=== PATIENT | male | born 1950 | race Caucasian/White ===

== ENCOUNTER 2021-12-25 13:54 | Inpatient (IN) | payer OTHER ==
[~2021-12-25] VITALS: Ht 172.7 cm; Wt 94.6 kg
[2021-12-25 13:55] VITALS: BP_SYST 101
[2021-12-25] MEDS ORDERED: methylPREDNISolone SOD SUCC/PF 62.5 MG/ML VIAL IVP ONE (14:30)
[2021-12-25] MEDS ORDERED: IPRATROPIUM BROM 0.5 MG/2.5 ML VIAL.NEB (ATROVENT) INH ONE (14:30)
[2021-12-25] MEDS ORDERED: ALBUTEROL SULFATE 0.083% 2.5 MG/3 ML VIAL.NEB INH ONE (14:30)
[2021-12-25 14:57] LABS: ANION GAP 11 (5-15); CALCIUM 9.5 mg/dL (8.4-11.0); CHLORIDE 100 mmol/L (98-107); CREATININE 2.06 mg/dL (0.55-1.30); GLUCOSE 89 mg/dL (70-99); POTASSIUM 4.4 mmol/L (3.5-5.1); UREA NITROGEN, BLOOD 40 mg/dL (8-21)
[2021-12-25 15:01] LABS: GFR AFRICAN AMERICAN 41 mL/min (>90)
[2021-12-25 15:05] LABS: ALANINE AMINOTRANSFERASE 48 U/L (12-78); ALBUMIN 3.6 g/dL (3.4-4.8); ASPARTATE AMINOTRANSFERASE 48 U/L (10-37); TOTAL BILIRUBIN 1.4 mg/dL (0.0-1.0)
[2021-12-25] MEDS ORDERED: KETOROLAC TROMETHAMINE 15 MG VIAL IVP ONE (16:45)
[2021-12-25] MEDS ORDERED: MULT-976 PO (17:18)
[2021-12-25] MEDS ORDERED: MELA10TA2 PO (17:18)
[2021-12-25] MEDS ORDERED: FOLI-43 PO (17:18)
[2021-12-25] MEDS ORDERED: ALBU90AE2 INH (17:18)
[2021-12-25] MEDS ORDERED: MIRT-114 PO (17:18)
[2021-12-25] MEDS ORDERED: ALBU2.5V7 INH (17:18)
[2021-12-25] MEDS ORDERED: LORA-259 PO (17:18)
[2021-12-25] MEDS ORDERED: LEVE500T9 PO (17:18)
[2021-12-25] MEDS ORDERED: HYDR-3919 PO (17:18)
[2021-12-25] MEDS ORDERED: PRED20TA PO (17:18)
[2021-12-25] MEDS ORDERED: FLUT1BLS19 INH (17:18)
[2021-12-25] MEDS ORDERED: ROFL500T PO (17:18)
[2021-12-25] MEDS ORDERED: APIX5TAB PO (17:18)
[2021-12-25] MEDS ORDERED: OMEP40CA20 PO (17:18)
[2021-12-25] MEDS ORDERED: DILT240C94 PO (17:18)
[2021-12-25] MEDS ORDERED: PARO40TA PO (17:18)
[2021-12-25] MEDS ORDERED: LIP40 PO (17:18)
[2021-12-25 19:03] LABS: MEAN CORPUSCULAR HEMOGLOBIN 28 pg (27-31); MEAN CORPUSCULAR VOLUME 88 fL (79.0-98.0); RED BLOOD CELL COUNT(AUTO) 4.57 MIL/uL (4.2-6.2)
[2021-12-25 19:04] LABS: MEAN CORPUSCULAR HGB CONC 32 % (32-36); PLATELET COUNT (AUTO) 321 K/uL (130-430); RED CELL DISTRIBUTION WIDTH 17.9 % (9.0-15.0)
[2021-12-25 19:05] LABS: BAND % (MANUAL) 4 % (0-6); LYMPHOCYTES % (MANUAL) 4 % (20-46)
[2021-12-25 19:06] LABS: BASOPHILS % (MANUAL) 0 % (0-2); EOSINOPHILS % (MANUAL) 0 % (0-7); MONOCYTES % (MANUAL) 6 % (0-11)
[2021-12-25 19:19] LABS: WHITE BLOOD COUNT (AUTO) 33.1 K/uL (4.8-10.8)
[2021-12-25] MEDS ORDERED: IPRATROPIUM/ALBUTEROL SULFATE 3 ML AMPUL.NEB (DUONEB) INH ONE (19:45)
[2021-12-25] MEDS ORDERED: NACL 0.9% 500 ML IV SCH (20:30)
[2021-12-25] MEDS ORDERED: cefTRIAXone 1 GM VIAL ONE (20:54)
[2021-12-25] MEDS ORDERED: cefTRIAXone 1 GM in D5W 50 ML IV SCH (21:00)
[2021-12-25] MEDS ORDERED: VANCOMYCIN HCL 1 GM/NS PREMIX 250 ML IV SCH (22:00)
[2021-12-25] MEDS ORDERED: NOREPINEPHRINE 4 MG/4 ML VIAL IV ONE (22:01)
[2021-12-25] MEDS: NOREPINEPHRINE BITARTRATE 4 MG in D5W 246 ML IV PRN (22:19)
[2021-12-25] MEDS: methylPREDNISolone SOD SUCC/PF 62.5 MG/ML VIAL IVP SCH (22:29)
[2021-12-25] MEDS ORDERED: PIPERACILLIN/TAZOBACTAM 4.5 GM/VIAL (ZOSYN) IV ONE (22:41)
[2021-12-25] MEDS: PIPERACILLIN/TAZO 4.5GM/DEX-IS 100 ML IV SCH (23:22)
[2021-12-26] VITALS (17 sets, daily range): BP systolic 106–162
[2021-12-26] MEDS ORDERED: LORazepam 2 MG/ML VIAL IVP ONE
[2021-12-26] MEDS: IPRATROPIUM/ALBUTEROL SULFATE 3 ML AMPUL.NEB (DUONEB) INH SCH ×5 (00:11→19:50)
[2021-12-26] MEDS ORDERED: VANCOMYCIN HCL 1000 MG/VIAL IV ONE (01:02)
[2021-12-26] MEDS ORDERED: PIPERACILLIN/TAZOBACTAM 4.5 GM/VIAL (ZOSYN) IV ONE (02:55)
[2021-12-26] MEDS ORDERED: LORazepam 1 MG TABLET PO PRN (03:15)
[2021-12-26] MEDS ORDERED: SODIUM BICARBONATE 8.4% VIAL 50 MEQ/50 ML VIAL INJ ONE (03:15)
[2021-12-26] MEDS ORDERED: SODIUM BICARBONATE 8.4% JECT 50 MEQ/50 ML SYRINGE ONE (03:31)
[2021-12-26] MEDS: PIPERACILLIN/TAZO 4.5GM/DEX-IS 100 ML IV SCH (06:08)
[2021-12-26] MEDS: methylPREDNISolone SOD SUCC/PF 62.5 MG/ML VIAL IVP SCH ×2 (06:09→14:45)
[2021-12-26] MEDS: LORazepam 1 MG TABLET PO PRN ×2 (06:31→22:57)
[2021-12-26] MEDS ORDERED: NOREPINEPHRINE 4 MG/4 ML VIAL IV ONE (06:46)
[2021-12-26] MEDS: NOREPINEPHRINE BITARTRATE 4 MG in D5W 246 ML IV PRN (06:56)
[2021-12-26 07:21] LABS: BILIRUBIN,URINE NEGATIVE (NEGATIVE); BLOOD, URINE 3+ (NEGATIVE); COLOR,URINE YELLOW (YELLOW); GLUCOSE,URINE NEGATIVE (NEGATIVE); KETONES,URINE NEGATIVE (NEGATIVE); LEUKOCYTE ESTERASE ,URINE NEGATIVE (NEGATIVE); NITRITE, URINE NEGATIVE (NEGATIVE); PROTEIN URINE 1+ (NEGATIVE); UROBILINOGEN,URINE 0.2 (0.2-1.0)
[2021-12-26 07:24] LABS: CLARITY/URINE CLOUDY (CLEAR)
[2021-12-26 07:29] LABS: CREATININE 2.41 mg/dL (0.55-1.30); POTASSIUM 4.2 mmol/L (3.5-5.1)
[2021-12-26] MEDS ORDERED: NALOXONE HCL 0.4 MG/ML AMP (NARCAN) IVP PRN (09:00)
[2021-12-26] MEDS ORDERED: DILTIAZEM HCL 120 MG CAP.SR.24H PO ONE (09:00)
[2021-12-26] MEDS ORDERED: ALBUTEROL SULFATE 0.083% 2.5 MG/3 ML VIAL.NEB INH PRN (09:00)
[2021-12-26] MEDS ORDERED: APIXABAN 2.5 MG TABLET PO ONE (09:00)
[2021-12-26] MEDS: ASPIRIN 81 MG TAB.CHEW PO SCH (09:42)
[2021-12-26] MEDS ORDERED: PARoxetine HCL 20 MG TABLET PO ONE (10:15)
[2021-12-26] MEDS: ACETAMINOPHEN 500 MG TABLET PO PRN ×2 (11:02→18:48)
[2021-12-26 11:54] LABS: BACTERIA,URINE FEW /HPF (None Seen); WBC,URINE 0-3 /HPF (0-3)
[2021-12-26 12:08] LABS: WHITE BLOOD COUNT (AUTO) 30.1 K/uL (4.8-10.8)
[2021-12-26 12:09] LABS: HEMOGLOBIN 12.4 g/dL (14.0-18.0); MEAN CORPUSCULAR HEMOGLOBIN 29 pg (27-31); MEAN CORPUSCULAR HGB CONC 33 % (32-36); MEAN CORPUSCULAR VOLUME 88 fL (79.0-98.0); RED BLOOD CELL COUNT(AUTO) 4.33 MIL/uL (4.2-6.2); RED CELL DISTRIBUTION WIDTH 17.7 % (9.0-15.0)
[2021-12-26 12:10] LABS: BASOPHILS % (AUTO) 0.2 % (0.0-2.0); LYMPHOCYTES # (AUTO) 0.6 K/uL (1.0-5.5); LYMPHOCYTES % (AUTO) 1.9 % (20.5-51.5); MONOCYTES # (AUTO) 0.9 K/uL (0.0-1.0); MONOCYTES % (AUTO) 3.1 % (1.7-9.3); NEUTROPHILS # (AUTO) 28.6 K/uL (1.8-7.7); PLATELET COUNT (AUTO) 302 K/uL (130-430)
[2021-12-26 12:11] LABS: BASOPHILS # (AUTO) 0.1 K/uL (0.0-0.2); NEUTROPHILS % (AUTO) 94.8 % (40.0-70.0)
[2021-12-26] MEDS: CEFEPIME 2 GM in D5W 100 ML IV SCH (13:00)
[2021-12-26] MEDS: AZITHROMYCIN 500 MG in NS 250 ML IV SCH (16:00)
[2021-12-26] MEDS: VANCOMYCIN HCL 750 MG in NS 250 ML IV SCH (20:55)
[2021-12-26] MEDS: MIRTAZAPINE 15 MG TABLET PO SCH (21:11)
[2021-12-26] MEDS: ATORVASTATIN 20 MG TABLET PO SCH (21:12)
[2021-12-26] MEDS: FOLIC ACID 1 MG TABLET PO SCH (21:12)
[2021-12-26] MEDS: APIXABAN 2.5 MG TABLET PO SCH (21:13)
[2021-12-26] MEDS: METHYLPREDNISOLONE SOD SUCC 40 MG/ML VIAL IVP SCH (21:14)
[2021-12-27] VITALS (23 sets, daily range): BP systolic 84–130
[2021-12-27] MEDS: IPRATROPIUM/ALBUTEROL SULFATE 3 ML AMPUL.NEB (DUONEB) INH SCH ×3 (01:30→12:00)
[2021-12-27] MEDS: HYDROcodone/ACETAMIN 5-325 MG TAB (NORCO/ VICODIN) PO PRN (02:00)
[2021-12-27 07:09] LABS: CREATININE 2.28 mg/dL (0.55-1.30); POTASSIUM 3.9 mmol/L (3.5-5.1)
[2021-12-27 07:14] LABS: BASOPHILS # (AUTO) 0.1 K/uL (0.0-0.2); BASOPHILS % (AUTO) 0.2 % (0.0-2.0); HEMATOCRIT 37.4 % (36-54); LYMPHOCYTES # (AUTO) 0.6 K/uL (1.0-5.5); LYMPHOCYTES % (AUTO) 2.6 % (20.5-51.5); MEAN CORPUSCULAR VOLUME 87 fL (79.0-98.0); MONOCYTES # (AUTO) 0.8 K/uL (0.0-1.0); MONOCYTES % (AUTO) 3.4 % (1.7-9.3); PLATELET COUNT (AUTO) 341 K/uL (130-430); RED BLOOD CELL COUNT(AUTO) 4.29 MIL/uL (4.2-6.2); RED CELL DISTRIBUTION WIDTH 17.8 % (9.0-15.0); WHITE BLOOD COUNT (AUTO) 24.5 K/uL (4.8-10.8)
[2021-12-27 07:24] LABS: ALBUMIN 3.2 g/dL (3.4-4.8); THYROID STIMULATING HORMONE 0.21 uIu/mL (0.36-3.74); TOTAL BILIRUBIN 0.9 mg/dL (0.0-1.0)
[2021-12-27 08:05] LABS: NEUTROPHILS % (AUTO) 93.8 % (40.0-70.0)
[2021-12-27] MEDS ORDERED: DILTIAZEM HCL 120 MG CAP.SR.24H PO SCH (09:00)
[2021-12-27] MEDS ORDERED: PARoxetine HCL 20 MG TABLET PO SCH (09:00)
[2021-12-27] MEDS ORDERED: DILTIAZEM HCL 240 MG CAP.SR.24H PO ONE (09:30)
[2021-12-27] MEDS: ASPIRIN 81 MG TAB.CHEW PO SCH (10:35)
[2021-12-27] MEDS: METHYLPREDNISOLONE SOD SUCC 40 MG/ML VIAL IVP SCH ×2 (10:36→20:05)
[2021-12-27] MEDS ORDERED: APIXABAN 2.5 MG TABLET ONE (11:02)
[2021-12-27] MEDS: APIXABAN 2.5 MG TABLET PO SCH ×2 (11:03→20:06)
[2021-12-27] MEDS: levETIRAcetam 500 MG TABLET PO SCH (11:03)
[2021-12-27] MEDS: AZITHROMYCIN 500 MG in NS 250 ML IV SCH (12:32)
[2021-12-27 12:39] LABS: HEMOGLOBIN 12.1 g/dL (14.0-18.0); MEAN CORPUSCULAR HEMOGLOBIN 29 pg (27-31); MEAN CORPUSCULAR HGB CONC 33 % (32-36)
[2021-12-27] MEDS: CEFEPIME 2 GM in D5W 100 ML IV SCH (13:00)
[2021-12-27] MEDS: VANCOMYCIN HCL 750 MG in NS 250 ML IV SCH (20:05)
[2021-12-27] MEDS: ATORVASTATIN 20 MG TABLET PO SCH (20:06)
[2021-12-27] MEDS: FOLIC ACID 1 MG TABLET PO SCH (20:06)
[2021-12-27] MEDS: LORazepam 1 MG TABLET PO PRN (20:09)
[2021-12-27] MEDS: MIRTAZAPINE 15 MG TABLET PO SCH (20:09)
[2021-12-28] VITALS (24 sets, daily range): BP systolic 97–131
[2021-12-28] MEDS: HYDROcodone/ACETAMIN 5-325 MG TAB (NORCO/ VICODIN) PO PRN ×2 (00:17→13:18)
[2021-12-28] MEDS: IPRATROPIUM/ALBUTEROL SULFATE 3 ML AMPUL.NEB (DUONEB) INH SCH ×4 (01:17→20:00)
[2021-12-28 07:11] LABS: BASOPHILS % (AUTO) 0.3 % (0.0-2.0); HEMATOCRIT 35.3 % (36-54); LYMPHOCYTES # (AUTO) 0.3 K/uL (1.0-5.5); LYMPHOCYTES % (AUTO) 2.8 % (20.5-51.5); MEAN CORPUSCULAR VOLUME 86 fL (79.0-98.0); MONOCYTES # (AUTO) 0.4 K/uL (0.0-1.0); MONOCYTES % (AUTO) 3.4 % (1.7-9.3); NEUTROPHILS # (AUTO) 11.1 K/uL (1.8-7.7); NEUTROPHILS % (AUTO) 93.5 % (40.0-70.0); PLATELET COUNT (AUTO) 278 K/uL (130-430); RED BLOOD CELL COUNT(AUTO) 4.12 MIL/uL (4.2-6.2); RED CELL DISTRIBUTION WIDTH 17.7 % (9.0-15.0); WHITE BLOOD COUNT (AUTO) 11.8 K/uL (4.8-10.8)
[2021-12-28 07:29] LABS: ALBUMIN 2.9 g/dL (3.4-4.8); CALCIUM 9.2 mg/dL (8.4-11.0); CREATININE 1.53 mg/dL (0.55-1.30); TOTAL BILIRUBIN 0.7 mg/dL (0.0-1.0)
[2021-12-28] MEDS: LORazepam 1 MG TABLET PO PRN ×2 (07:51→20:11)
[2021-12-28] MEDS ORDERED: PARoxetine HCL 20 MG TABLET PO SCH (09:00)
[2021-12-28] MEDS: DILTIAZEM HCL 240 MG CAP.SR.24H PO SCH (09:22)
[2021-12-28] MEDS: METHYLPREDNISOLONE SOD SUCC 40 MG/ML VIAL IVP SCH ×2 (09:22→20:09)
[2021-12-28] MEDS: ASPIRIN 81 MG TAB.CHEW PO SCH (09:23)
[2021-12-28] MEDS: APIXABAN 2.5 MG TABLET PO SCH ×2 (09:24→20:10)
[2021-12-28] MEDS: PARoxetine HCL 20 MG TABLET PO SCH (09:24)
[2021-12-28] MEDS: levETIRAcetam 500 MG TABLET PO SCH (09:27)
[2021-12-28] MEDS: AZITHROMYCIN 500 MG in NS 250 ML IV SCH (11:27)
[2021-12-28] MEDS: CEFEPIME 2 GM in D5W 100 ML IV SCH (13:08)
[2021-12-28] MEDS: VANCOMYCIN HCL 750 MG in NS 250 ML IV SCH (20:09)
[2021-12-28] MEDS: FOLIC ACID 1 MG TABLET PO SCH (20:10)
[2021-12-28] MEDS: ATORVASTATIN 20 MG TABLET PO SCH (20:10)
[2021-12-28] MEDS: MIRTAZAPINE 15 MG TABLET PO SCH (20:10)
[2021-12-29] VITALS (21 sets, daily range): BP systolic 96–150
[2021-12-29] MEDS: IPRATROPIUM/ALBUTEROL SULFATE 3 ML AMPUL.NEB (DUONEB) INH SCH ×4 (01:05→19:40)
[2021-12-29 06:52] LABS: BASOPHILS # (AUTO) 0.1 K/uL (0.0-0.2); BASOPHILS % (AUTO) 0.6 % (0.0-2.0); EOSINOPHILS % (AUTO) 0.2 % (0.0-4.0); LYMPHOCYTES # (AUTO) 0.4 K/uL (1.0-5.5); LYMPHOCYTES % (AUTO) 2.6 % (20.5-51.5); MEAN CORPUSCULAR VOLUME 87 fL (79.0-98.0); MONOCYTES # (AUTO) 0.5 K/uL (0.0-1.0); MONOCYTES % (AUTO) 3.7 % (1.7-9.3); NEUTROPHILS # (AUTO) 13.1 K/uL (1.8-7.7); NEUTROPHILS % (AUTO) 92.9 % (40.0-70.0); PLATELET COUNT (AUTO) 312 K/uL (130-430); RED BLOOD CELL COUNT(AUTO) 4.25 MIL/uL (4.2-6.2); RED CELL DISTRIBUTION WIDTH 17.9 % (9.0-15.0); WHITE BLOOD COUNT (AUTO) 14.1 K/uL (4.8-10.8)
[2021-12-29 07:12] LABS: ALBUMIN 3.1 g/dL (3.4-4.8); CALCIUM 9.4 mg/dL (8.4-11.0); CREATININE 1.52 mg/dL (0.55-1.30); POTASSIUM 4.5 mmol/L (3.5-5.1); TOTAL BILIRUBIN 0.7 mg/dL (0.0-1.0)
[2021-12-29] MEDS: levETIRAcetam 500 MG TABLET PO SCH (08:57)
[2021-12-29] MEDS: ASPIRIN 81 MG TAB.CHEW PO SCH (08:57)
[2021-12-29] MEDS: PARoxetine HCL 20 MG TABLET PO SCH (08:57)
[2021-12-29] MEDS: APIXABAN 2.5 MG TABLET PO SCH ×2 (08:59→20:36)
[2021-12-29] MEDS: METHYLPREDNISOLONE SOD SUCC 40 MG/ML VIAL IVP SCH ×2 (09:09→20:35)
[2021-12-29] MEDS: DILTIAZEM HCL 240 MG CAP.SR.24H PO SCH (09:09)
[2021-12-29] MEDS: AZITHROMYCIN 500 MG in NS 250 ML IV SCH (12:41)
[2021-12-29] MEDS: CEFEPIME 2 GM in D5W 100 ML IV SCH (13:38)
[2021-12-29] MEDS: VANCOMYCIN HCL 750 MG in NS 250 ML IV SCH (20:35)
[2021-12-29] MEDS: MIRTAZAPINE 15 MG TABLET PO SCH (20:37)
[2021-12-29] MEDS: LORazepam 1 MG TABLET PO PRN (20:37)
[2021-12-29] MEDS: ATORVASTATIN 20 MG TABLET PO SCH (20:37)
[2021-12-29] MEDS: FOLIC ACID 1 MG TABLET PO SCH (20:37)
[2021-12-30] VITALS (22 sets, daily range): BP systolic 100–137
[2021-12-30] MEDS: IPRATROPIUM/ALBUTEROL SULFATE 3 ML AMPUL.NEB (DUONEB) INH SCH ×4 (00:59→19:35)
[2021-12-30 07:21] LABS: BASOPHILS % (AUTO) 0.1 % (0.0-2.0); EOSINOPHILS % (AUTO) 0.1 % (0.0-4.0); HEMATOCRIT 35.3 % (36-54); LYMPHOCYTES # (AUTO) 0.5 K/uL (1.0-5.5); LYMPHOCYTES % (AUTO) 2.8 % (20.5-51.5); MEAN CORPUSCULAR VOLUME 87 fL (79.0-98.0); MONOCYTES # (AUTO) 0.8 K/uL (0.0-1.0); MONOCYTES % (AUTO) 4.4 % (1.7-9.3); NEUTROPHILS # (AUTO) 16.6 K/uL (1.8-7.7); NEUTROPHILS % (AUTO) 92.6 % (40.0-70.0); PLATELET COUNT (AUTO) 347 K/uL (130-430); RED BLOOD CELL COUNT(AUTO) 4.07 MIL/uL (4.2-6.2); RED CELL DISTRIBUTION WIDTH 17.7 % (9.0-15.0); WHITE BLOOD COUNT (AUTO) 17.9 K/uL (4.8-10.8)
[2021-12-30 07:49] LABS: ALBUMIN 3.1 g/dL (3.4-4.8); CALCIUM 9.3 mg/dL (8.4-11.0); CREATININE 1.39 mg/dL (0.55-1.30); POTASSIUM 4.8 mmol/L (3.5-5.1); TOTAL BILIRUBIN 0.6 mg/dL (0.0-1.0)
[2021-12-30] MEDS: ONDANSETRON HCL 4 MG/2 ML VIAL IVP PRN (08:14)
[2021-12-30] MEDS: PARoxetine HCL 20 MG TABLET PO SCH (08:14)
[2021-12-30] MEDS: LORazepam 1 MG TABLET PO PRN ×2 (08:15→16:48)
[2021-12-30] MEDS: levETIRAcetam 500 MG TABLET PO SCH (08:16)
[2021-12-30] MEDS: METHYLPREDNISOLONE SOD SUCC 40 MG/ML VIAL IVP SCH ×2 (08:17→20:53)
[2021-12-30] MEDS: ASPIRIN 81 MG TAB.CHEW PO SCH (08:17)
[2021-12-30] MEDS: DILTIAZEM HCL 240 MG CAP.SR.24H PO SCH (08:17)
[2021-12-30] MEDS: APIXABAN 2.5 MG TABLET PO SCH ×2 (08:18→20:53)
[2021-12-30] MEDS: PROMETHAZINE-DM 6.25 MG-15 MG/5 ML UDC PO PRN ×2 (11:07→21:07)
[2021-12-30] MEDS: MILK OF MAGNESIA 30 ML UDC PO PRN (12:19)
[2021-12-30 14:06] LABS: IMMUNOGLOBULIN E,TOTAL 14 IU/mL (6-495)
[2021-12-30] MEDS: FOLIC ACID 1 MG TABLET PO SCH (20:53)
[2021-12-30] MEDS: ATORVASTATIN 20 MG TABLET PO SCH (20:53)
[2021-12-30] MEDS: MIRTAZAPINE 15 MG TABLET PO SCH (20:53)
[2021-12-30] MEDS: VANCOMYCIN HCL 750 MG in NS 250 ML IV SCH (20:55)
[2021-12-30 21:06] LABS: MYCOPLASMA PNEUMONIAE IgM <770 U/mL (0-769)
[2021-12-31] VITALS (24 sets, daily range): BP systolic 107–140
[2021-12-31] MEDS: IPRATROPIUM/ALBUTEROL SULFATE 3 ML AMPUL.NEB (DUONEB) INH SCH ×4 (01:05→19:36)
[2021-12-31 07:11] LABS: BASOPHILS % (AUTO) 0.2 % (0.0-2.0); EOSINOPHILS % (AUTO) 0.1 % (0.0-4.0); HEMATOCRIT 35.4 % (36-54); LYMPHOCYTES # (AUTO) 0.6 K/uL (1.0-5.5); LYMPHOCYTES % (AUTO) 2.7 % (20.5-51.5); MEAN CORPUSCULAR VOLUME 87 fL (79.0-98.0); MONOCYTES % (AUTO) 4.4 % (1.7-9.3); NEUTROPHILS # (AUTO) 20.9 K/uL (1.8-7.7); NEUTROPHILS % (AUTO) 92.6 % (40.0-70.0); PLATELET COUNT (AUTO) 378 K/uL (130-430); RED BLOOD CELL COUNT(AUTO) 4.07 MIL/uL (4.2-6.2); RED CELL DISTRIBUTION WIDTH 18.4 % (9.0-15.0); WHITE BLOOD COUNT (AUTO) 22.6 K/uL (4.8-10.8)
[2021-12-31 07:43] LABS: ALBUMIN 3.1 g/dL (3.4-4.8); CALCIUM 9.4 mg/dL (8.4-11.0); CREATININE 1.24 mg/dL (0.55-1.30); POTASSIUM 4.9 mmol/L (3.5-5.1); TOTAL BILIRUBIN 0.5 mg/dL (0.0-1.0)
[2021-12-31] MEDS: DILTIAZEM HCL 240 MG CAP.SR.24H PO SCH (08:54)
[2021-12-31] MEDS: levETIRAcetam 500 MG TABLET PO SCH (08:54)
[2021-12-31] MEDS: ASPIRIN 81 MG TAB.CHEW PO SCH (08:54)
[2021-12-31] MEDS: PARoxetine HCL 20 MG TABLET PO SCH (08:54)
[2021-12-31] MEDS: APIXABAN 2.5 MG TABLET PO SCH ×2 (08:55→21:33)
[2021-12-31] MEDS ORDERED: methylPREDNISolone SOD SUCC/PF 62.5 MG/ML VIAL IVP SCH (09:00)
[2021-12-31] MEDS ORDERED: predniSONE 20 MG TABLET PO SCH (09:00)
[2021-12-31] MEDS: IPRATROPIUM/ALBUTEROL SULFATE 3 ML AMPUL.NEB (DUONEB) INH PRN ×2 (10:34→14:09)
[2021-12-31] MEDS: LORazepam 1 MG TABLET PO PRN (14:38)
[2021-12-31] MEDS: ATORVASTATIN 20 MG TABLET PO SCH (21:34)
[2021-12-31] MEDS: HYDROcodone/ACETAMIN 5-325 MG TAB (NORCO/ VICODIN) PO PRN (21:35)
[2021-12-31] MEDS: MIRTAZAPINE 15 MG TABLET PO SCH (21:35)
[2021-12-31] MEDS: FOLIC ACID 1 MG TABLET PO SCH (21:35)
[2021-12-31] MEDS: clonazePAM 0.5 MG TABLET PO SCH (21:35)
[2021-12-31] MEDS: PROMETHAZINE-DM 6.25 MG-15 MG/5 ML UDC PO PRN (21:37)
[2021-12-31] MEDS: VANCOMYCIN HCL 750 MG in NS 250 ML IV SCH (21:37)
[2022-01-01] VITALS (22 sets, daily range): BP systolic 108–139
[2022-01-01] MEDS: IPRATROPIUM/ALBUTEROL SULFATE 3 ML AMPUL.NEB (DUONEB) INH SCH ×4 (01:05→20:50)
[2022-01-01 06:38] LABS: HEMATOCRIT 34.8 % (36-54); MEAN CORPUSCULAR VOLUME 88 fL (79.0-98.0); PLATELET COUNT (AUTO) 408 K/uL (130-430); RED BLOOD CELL COUNT(AUTO) 3.94 MIL/uL (4.2-6.2); RED CELL DISTRIBUTION WIDTH 18.1 % (9.0-15.0); WHITE BLOOD COUNT (AUTO) 25.1 K/uL (4.8-10.8)
[2022-01-01 06:42] LABS: CALCIUM 9.2 mg/dL (8.4-11.0); CREATININE 1.25 mg/dL (0.55-1.30); TOTAL BILIRUBIN 0.5 mg/dL (0.0-1.0)
[2022-01-01 06:59] LABS: POTASSIUM 4.7 mmol/L (3.5-5.1)
[2022-01-01 08:01] LABS: BAND % (MANUAL) 2 % (0-6); BASOPHILS % (MANUAL) 0 % (0-2); EOSINOPHILS % (MANUAL) 1 % (0-7); LYMPHOCYTES % (MANUAL) 5 % (20-46); MONOCYTES % (MANUAL) 7 % (0-11)
[2022-01-01] MEDS: clonazePAM 0.5 MG TABLET PO SCH ×2 (08:58→21:18)
[2022-01-01] MEDS: DILTIAZEM HCL 240 MG CAP.SR.24H PO SCH (08:58)
[2022-01-01] MEDS: PARoxetine HCL 20 MG TABLET PO SCH (08:58)
[2022-01-01] MEDS: APIXABAN 2.5 MG TABLET PO SCH ×2 (08:59→21:18)
[2022-01-01] MEDS: ASPIRIN 81 MG TAB.CHEW PO SCH (09:00)
[2022-01-01] MEDS: methylPREDNISolone SOD SUCC/PF 62.5 MG/ML VIAL IVP SCH (09:01)
[2022-01-01] MEDS: levETIRAcetam 500 MG TABLET PO SCH (09:15)
[2022-01-01] MEDS: ONDANSETRON HCL 4 MG/2 ML VIAL IVP PRN (12:03)
[2022-01-01] MEDS: VANCOMYCIN HCL 750 MG in NS 250 ML IV SCH ×2 (12:20→22:51)
[2022-01-01] MEDS ORDERED: FUROSEMIDE 40 MG/4 ML VIAL IVP ONE (14:30)
[2022-01-01] MEDS: PROMETHAZINE-DM 6.25 MG-15 MG/5 ML UDC PO PRN (21:17)
[2022-01-01] MEDS: ATORVASTATIN 20 MG TABLET PO SCH (21:17)
[2022-01-01] MEDS: HYDROcodone/ACETAMIN 5-325 MG TAB (NORCO/ VICODIN) PO PRN (21:19)
[2022-01-01] MEDS: FOLIC ACID 1 MG TABLET PO SCH (21:19)
[2022-01-01] MEDS: MIRTAZAPINE 15 MG TABLET PO SCH (21:19)
[2022-01-02] VITALS (23 sets, daily range): BP systolic 105–146
[2022-01-02] MEDS: IPRATROPIUM/ALBUTEROL SULFATE 3 ML AMPUL.NEB (DUONEB) INH SCH ×3 (04:54→13:32)
[2022-01-02 06:54] LABS: ALBUMIN 2.9 g/dL (3.4-4.8); CALCIUM 9.1 mg/dL (8.4-11.0); CREATININE 1.3 mg/dL (0.55-1.30); POTASSIUM 4.7 mmol/L (3.5-5.1); TOTAL BILIRUBIN 0.4 mg/dL (0.0-1.0)
[2022-01-02 07:06] LABS: BASOPHILS # (AUTO) 0.1 K/uL (0.0-0.2); BASOPHILS % (AUTO) 0.5 % (0.0-2.0); HEMATOCRIT 34.6 % (36-54); LYMPHOCYTES # (AUTO) 0.8 K/uL (1.0-5.5); LYMPHOCYTES % (AUTO) 3.5 % (20.5-51.5); MEAN CORPUSCULAR VOLUME 89 fL (79.0-98.0); MONOCYTES # (AUTO) 1.8 K/uL (0.0-1.0); MONOCYTES % (AUTO) 7.5 % (1.7-9.3); NEUTROPHILS # (AUTO) 21.6 K/uL (1.8-7.7); PLATELET COUNT (AUTO) 414 K/uL (130-430); RED BLOOD CELL COUNT(AUTO) 3.91 MIL/uL (4.2-6.2); RED CELL DISTRIBUTION WIDTH 18.3 % (9.0-15.0); WHITE BLOOD COUNT (AUTO) 24.4 K/uL (4.8-10.8)
[2022-01-02] MEDS: methylPREDNISolone SOD SUCC/PF 62.5 MG/ML VIAL IVP SCH (08:26)
[2022-01-02] MEDS: FUROSEMIDE 20 MG/2 ML VIAL IVP SCH (08:27)
[2022-01-02] MEDS: ASPIRIN 81 MG TAB.CHEW PO SCH (08:27)
[2022-01-02] MEDS: APIXABAN 2.5 MG TABLET PO SCH ×2 (08:28→21:26)
[2022-01-02] MEDS: DILTIAZEM HCL 240 MG CAP.SR.24H PO SCH (08:28)
[2022-01-02] MEDS: clonazePAM 0.5 MG TABLET PO SCH ×2 (08:29→21:25)
[2022-01-02] MEDS: levETIRAcetam 500 MG TABLET PO SCH (08:29)
[2022-01-02] MEDS: PARoxetine HCL 20 MG TABLET PO SCH (08:29)
[2022-01-02 08:47] LABS: NEUTROPHILS % (AUTO) 88.5 % (40.0-70.0)
[2022-01-02] MEDS: PROMETHAZINE-DM 6.25 MG-15 MG/5 ML UDC PO PRN ×2 (11:14→21:24)
[2022-01-02] MEDS: VANCOMYCIN HCL 750 MG in NS 250 ML IV SCH (11:21)
[2022-01-02] MEDS: MILK OF MAGNESIA 30 ML UDC PO PRN (21:23)
[2022-01-02] MEDS: FOLIC ACID 1 MG TABLET PO SCH (21:25)
[2022-01-02] MEDS: ACETAMINOPHEN 500 MG TABLET PO PRN (21:25)
[2022-01-02] MEDS: ATORVASTATIN 20 MG TABLET PO SCH (21:25)
[2022-01-02] MEDS: MIRTAZAPINE 15 MG TABLET PO SCH (21:27)
[2022-01-03] MEDS: VANCOMYCIN HCL 750 MG in NS 250 ML IV SCH ×3 (00:09→23:00)
[2022-01-03] MEDS: IPRATROPIUM/ALBUTEROL SULFATE 3 ML AMPUL.NEB (DUONEB) INH SCH ×5 (05:58→19:55)
[2022-01-03] MEDS: methylPREDNISolone SOD SUCC/PF 62.5 MG/ML VIAL IVP SCH (09:00)
[2022-01-03] MEDS: FUROSEMIDE 20 MG/2 ML VIAL IVP SCH (09:00)
[2022-01-03] MEDS: APIXABAN 2.5 MG TABLET PO SCH ×2 (09:00→21:08)
[2022-01-03] MEDS: DILTIAZEM HCL 240 MG CAP.SR.24H PO SCH (09:00)
[2022-01-03] MEDS: clonazePAM 0.5 MG TABLET PO SCH ×2 (09:00→21:06)
[2022-01-03] MEDS: levETIRAcetam 500 MG TABLET PO SCH (09:00)
[2022-01-03] MEDS: ASPIRIN 81 MG TAB.CHEW PO SCH (09:00)
[2022-01-03] MEDS: PARoxetine HCL 20 MG TABLET PO SCH (09:00)
[2022-01-03] MEDS: ONDANSETRON HCL 4 MG/2 ML VIAL IVP PRN (10:29)
[2022-01-03] MEDS ORDERED: GASTROGRAFIN 120 ML ONE (15:31)
[2022-01-03] MEDS ORDERED: iohexoL 350 mgI/mL, 100 ML INFUS..BTL IV ONE (18:05)
[2022-01-03 20:10] VITALS: BP_SYST 116
[2022-01-03] MEDS: FOLIC ACID 1 MG TABLET PO SCH (21:06)
[2022-01-03] MEDS: ATORVASTATIN 20 MG TABLET PO SCH (21:07)
[2022-01-03] MEDS: MIRTAZAPINE 15 MG TABLET PO SCH (21:07)
[2022-01-04] MEDS: IPRATROPIUM/ALBUTEROL SULFATE 3 ML AMPUL.NEB (DUONEB) INH SCH ×4 (01:13→19:55)
[2022-01-04] MEDS: FUROSEMIDE 20 MG/2 ML VIAL IVP SCH (08:57)
[2022-01-04] MEDS: DILTIAZEM HCL 240 MG CAP.SR.24H PO SCH (08:58)
[2022-01-04] MEDS: clonazePAM 0.5 MG TABLET PO SCH ×2 (08:58→21:08)
[2022-01-04] MEDS: PARoxetine HCL 20 MG TABLET PO SCH (08:59)
[2022-01-04] MEDS: levETIRAcetam 500 MG TABLET PO SCH (08:59)
[2022-01-04] MEDS: APIXABAN 2.5 MG TABLET PO SCH ×2 (08:59→21:09)
[2022-01-04] MEDS: ASPIRIN 81 MG TAB.CHEW PO SCH (09:01)
[2022-01-04] MEDS: methylPREDNISolone SOD SUCC/PF 62.5 MG/ML VIAL IVP SCH (09:03)
[2022-01-04] MEDS ORDERED: MAGNESIUM CITRATE 300 ML ORAL SOLUTION PO ONE (09:30)
[2022-01-04] MEDS ORDERED: MILK OF MAGNESIA 30 ML UDC PO ONE (09:30)
[2022-01-04] MEDS ORDERED: POLYETHYLENE GLYCOL 3350, 17 GM/ POWD.PACK PO ONE (09:30)
[2022-01-04] MEDS: VANCOMYCIN HCL 750 MG in NS 250 ML IV SCH ×2 (11:01→23:00)
[2022-01-04 16:00] VITALS: BP_SYST 106
[2022-01-04] MEDS: FOLIC ACID 1 MG TABLET PO SCH (21:08)
[2022-01-04] MEDS: HYDROcodone/ACETAMIN 5-325 MG TAB (NORCO/ VICODIN) PO PRN (21:10)
[2022-01-04] MEDS: MIRTAZAPINE 15 MG TABLET PO SCH (21:10)
[2022-01-04] MEDS: ATORVASTATIN 20 MG TABLET PO SCH (21:11)
[2022-01-04] MEDS: IPRATROPIUM/ALBUTEROL SULFATE 3 ML AMPUL.NEB (DUONEB) INH PRN (22:43)
[2022-01-04] MEDS: LORazepam 1 MG TABLET PO PRN (23:09)
[2022-01-05 00:45] VITALS: BP_SYST 110
[2022-01-05] MEDS: IPRATROPIUM/ALBUTEROL SULFATE 3 ML AMPUL.NEB (DUONEB) INH SCH ×4 (04:17→19:42)
[2022-01-05 07:38] LABS: BASOPHILS # (AUTO) 0.1 K/uL (0.0-0.2); BASOPHILS % (AUTO) 0.2 % (0.0-2.0); HEMATOCRIT 33.3 % (36-54); LYMPHOCYTES # (AUTO) 0.7 K/uL (1.0-5.5); LYMPHOCYTES % (AUTO) 2.4 % (20.5-51.5); MEAN CORPUSCULAR VOLUME 89 fL (79.0-98.0); MONOCYTES # (AUTO) 1.8 K/uL (0.0-1.0); MONOCYTES % (AUTO) 6.3 % (1.7-9.3); NEUTROPHILS # (AUTO) 25.3 K/uL (1.8-7.7); NEUTROPHILS % (AUTO) 91.1 % (40.0-70.0); PLATELET COUNT (AUTO) 406 K/uL (130-430); RED BLOOD CELL COUNT(AUTO) 3.76 MIL/uL (4.2-6.2); RED CELL DISTRIBUTION WIDTH 18.3 % (9.0-15.0); WHITE BLOOD COUNT (AUTO) 27.8 K/uL (4.8-10.8)
[2022-01-05 08:00] VITALS: BP_SYST 133
[2022-01-05 08:28] LABS: ALBUMIN 2.9 g/dL (3.4-4.8); CALCIUM 8.7 mg/dL (8.4-11.0); CREATININE 1.26 mg/dL (0.55-1.30); POTASSIUM 4.7 mmol/L (3.5-5.1); TOTAL BILIRUBIN 0.6 mg/dL (0.0-1.0)
[2022-01-05] MEDS: FUROSEMIDE 20 MG/2 ML VIAL IVP SCH (08:48)
[2022-01-05] MEDS: methylPREDNISolone SOD SUCC/PF 62.5 MG/ML VIAL IVP SCH (08:48)
[2022-01-05] MEDS: POLYETHYLENE GLYCOL 3350, 17 GM/ POWD.PACK PO SCH (08:49)
[2022-01-05] MEDS: MILK OF MAGNESIA 30 ML UDC PO SCH (08:50)
[2022-01-05] MEDS: levETIRAcetam 500 MG TABLET PO SCH (08:50)
[2022-01-05] MEDS: PARoxetine HCL 20 MG TABLET PO SCH (08:50)
[2022-01-05] MEDS: DILTIAZEM HCL 240 MG CAP.SR.24H PO SCH (08:50)
[2022-01-05] MEDS: ASPIRIN 81 MG TAB.CHEW PO SCH (08:51)
[2022-01-05] MEDS: clonazePAM 0.5 MG TABLET PO SCH ×2 (08:51→21:01)
[2022-01-05] MEDS: APIXABAN 2.5 MG TABLET PO SCH ×2 (09:07→21:07)
[2022-01-05] MEDS: VANCOMYCIN HCL 750 MG in NS 250 ML IV SCH ×2 (11:20→23:38)
[2022-01-05 11:29] VITALS: BP_SYST 143
[2022-01-05] MEDS ORDERED: LACTULOSE 20 GM/30 ML UDC PO ONE (11:45)
[2022-01-05 15:32] VITALS: BP_SYST 127
[2022-01-05] MEDS ORDERED: GOLYTELY / COLYTE SOLUTION 4 LITERS PO ONE (16:30)
[2022-01-05] MEDS ORDERED: MINERAL OIL 30 ML UDC PO ONE (16:30)
[2022-01-05] MEDS: LORazepam 1 MG TABLET PO PRN (17:04)
[2022-01-05 20:30] VITALS: BP_SYST 142
[2022-01-05] MEDS: FOLIC ACID 1 MG TABLET PO SCH (21:00)
[2022-01-05] MEDS: MIRTAZAPINE 15 MG TABLET PO SCH (21:00)
[2022-01-05] MEDS: ATORVASTATIN 20 MG TABLET PO SCH (21:01)
[2022-01-05] MEDS: HYDROcodone/ACETAMIN 5-325 MG TAB (NORCO/ VICODIN) PO PRN (21:13)
[2022-01-05] MEDS: ONDANSETRON HCL 4 MG/2 ML VIAL IVP PRN (21:23)
[2022-01-06] VITALS: BP_SYST 155
[2022-01-06] MEDS: IPRATROPIUM/ALBUTEROL SULFATE 3 ML AMPUL.NEB (DUONEB) INH SCH ×4 (04:49→19:41)
[2022-01-06] MEDS: IPRATROPIUM/ALBUTEROL SULFATE 3 ML AMPUL.NEB (DUONEB) INH PRN ×2 (04:49→23:06)
[2022-01-06 08:00] VITALS: BP_SYST 123
[2022-01-06 08:44] LABS: BASOPHILS # (AUTO) 0.1 K/uL (0.0-0.2); BASOPHILS % (AUTO) 0.2 % (0.0-2.0); HEMATOCRIT 33.6 % (36-54); LYMPHOCYTES # (AUTO) 0.7 K/uL (1.0-5.5); LYMPHOCYTES % (AUTO) 2.1 % (20.5-51.5); MEAN CORPUSCULAR VOLUME 88 fL (79.0-98.0); MONOCYTES # (AUTO) 2.7 K/uL (0.0-1.0); MONOCYTES % (AUTO) 8.5 % (1.7-9.3); NEUTROPHILS # (AUTO) 28.8 K/uL (1.8-7.7); NEUTROPHILS % (AUTO) 89.2 % (40.0-70.0); PLATELET COUNT (AUTO) 405 K/uL (130-430); RED BLOOD CELL COUNT(AUTO) 3.81 MIL/uL (4.2-6.2); RED CELL DISTRIBUTION WIDTH 18.1 % (9.0-15.0)
[2022-01-06 08:44] LABS: INR 1.3 (0.80-1.20); PROTHROMBIN TIME 12.6 SECS (9.5-12.5)
[2022-01-06 09:09] LABS: CALCIUM 8.4 mg/dL (8.4-11.0); CREATININE 1.11 mg/dL (0.55-1.30); POTASSIUM 4.7 mmol/L (3.5-5.1)
[2022-01-06 09:13] LABS: WHITE BLOOD COUNT (AUTO) 32.3 K/uL (4.8-10.8)
[2022-01-06 09:14] LABS: ALBUMIN 3.1 g/dL (3.4-4.8); TOTAL BILIRUBIN 0.9 mg/dL (0.0-1.0)
[2022-01-06] MEDS: MILK OF MAGNESIA 30 ML UDC PO SCH (09:36)
[2022-01-06] MEDS: ASPIRIN 81 MG TAB.CHEW PO SCH (09:39)
[2022-01-06] MEDS: PARoxetine HCL 20 MG TABLET PO SCH (09:39)
[2022-01-06] MEDS: DILTIAZEM HCL 240 MG CAP.SR.24H PO SCH (09:39)
[2022-01-06] MEDS: levETIRAcetam 500 MG TABLET PO SCH (09:40)
[2022-01-06] MEDS: FUROSEMIDE 20 MG/2 ML VIAL IVP SCH (09:41)
[2022-01-06] MEDS: HYDROcodone/ACETAMIN 5-325 MG TAB (NORCO/ VICODIN) PO PRN ×2 (09:41→23:19)
[2022-01-06] MEDS: POLYETHYLENE GLYCOL 3350, 17 GM/ POWD.PACK PO SCH (09:43)
[2022-01-06 11:10] VITALS: BP_SYST 112
[2022-01-06] MEDS: clonazePAM 0.5 MG TABLET PO SCH ×2 (11:49→23:21)
[2022-01-06] MEDS: VANCOMYCIN HCL 750 MG in NS 250 ML IV SCH (11:50)
[2022-01-06] MEDS: metroNIDAZOLE 500 mg/NS 100 ML IV SCH (14:34)
[2022-01-06 15:25] VITALS: BP_SYST 117
[2022-01-06] MEDS ORDERED: BISACODYL 5 MG TABLET.DR (DULCOLAX) PO ONE (17:00)
[2022-01-06] MEDS ORDERED: GOLYTELY / COLYTE SOLUTION 4 LITERS PO ONE (18:00)
[2022-01-06] MEDS: FOLIC ACID 1 MG TABLET PO SCH (23:19)
[2022-01-06] MEDS: MIRTAZAPINE 15 MG TABLET PO SCH (23:20)
[2022-01-06] MEDS: ATORVASTATIN 20 MG TABLET PO SCH (23:21)
[2022-01-07 08:00] VITALS: BP_SYST 103
[2022-01-07] MEDS: FUROSEMIDE 20 MG/2 ML VIAL IVP SCH (09:00)
[2022-01-07] MEDS: DILTIAZEM HCL 240 MG CAP.SR.24H PO SCH (09:00)
[2022-01-07] MEDS: IPRATROPIUM/ALBUTEROL SULFATE 3 ML AMPUL.NEB (DUONEB) INH SCH ×2 (09:37→11:38)
[2022-01-07 09:39] LABS: BASOPHILS # (AUTO) 0.1 K/uL (0.0-0.2); BASOPHILS % (AUTO) 0.4 % (0.0-2.0); EOSINOPHILS # (AUTO) 0.1 K/uL (0.0-0.4); EOSINOPHILS % (AUTO) 0.3 % (0.0-4.0); HEMATOCRIT 32.4 % (36-54); LYMPHOCYTES # (AUTO) 0.8 K/uL (1.0-5.5); LYMPHOCYTES % (AUTO) 3.3 % (20.5-51.5); MEAN CORPUSCULAR VOLUME 88 fL (79.0-98.0); MONOCYTES % (AUTO) 8.4 % (1.7-9.3); NEUTROPHILS # (AUTO) 20.5 K/uL (1.8-7.7); PLATELET COUNT (AUTO) 350 K/uL (130-430); RED BLOOD CELL COUNT(AUTO) 3.68 MIL/uL (4.2-6.2); RED CELL DISTRIBUTION WIDTH 17.7 % (9.0-15.0); WHITE BLOOD COUNT (AUTO) 23.4 K/uL (4.8-10.8)
[2022-01-07 09:57] LABS: ALBUMIN 2.7 g/dL (3.4-4.8); CALCIUM 8.2 mg/dL (8.4-11.0); CREATININE 1.13 mg/dL (0.55-1.30); POTASSIUM 3.9 mmol/L (3.5-5.1); TOTAL BILIRUBIN 0.8 mg/dL (0.0-1.0)
[2022-01-07 10:01] LABS: INR 1.2 (0.80-1.20); PROTHROMBIN TIME 12.4 SECS (9.5-12.5)
[2022-01-07 10:35] LABS: NEUTROPHILS % (AUTO) 87.6 % (40.0-70.0)
[2022-01-07 11:01] VITALS: BP_SYST 103
[2022-01-07] MEDS: POLYETHYLENE GLYCOL 3350, 17 GM/ POWD.PACK PO SCH (11:10)
[2022-01-07] MEDS: levETIRAcetam 500 MG TABLET PO SCH (11:10)
[2022-01-07] MEDS: clonazePAM 0.5 MG TABLET PO SCH ×2 (11:10→23:50)
[2022-01-07] MEDS: PARoxetine HCL 20 MG TABLET PO SCH (11:10)
[2022-01-07] MEDS: ASPIRIN 81 MG TAB.CHEW PO SCH (11:10)
[2022-01-07] MEDS: MILK OF MAGNESIA 30 ML UDC PO SCH (11:10)
[2022-01-07 12:00] VITALS: BP_SYST 105
[2022-01-07] MEDS ORDERED: IOHEXOL 350 mgI/mL, 150 ML INFUS..BTL IV ONE (13:30)
[2022-01-07] MEDS: metroNIDAZOLE 500 mg/NS 100 ML IV SCH ×2 (14:31→23:50)
[2022-01-07] MEDS: MEROPENEM 1 GM in NS 100 ML IV SCH ×2 (14:32→23:50)
[2022-01-07 16:00] VITALS: BP_SYST 103
[2022-01-07] MEDS: IPRATROPIUM/ALBUTEROL SULFATE 3 ML AMPUL.NEB (DUONEB) INH PRN (16:01)
[2022-01-07] MEDS ORDERED: BISACODYL 5 MG TABLET.DR (DULCOLAX) PO ONE (17:00)
[2022-01-07] MEDS: ATORVASTATIN 20 MG TABLET PO SCH (23:49)
[2022-01-07] MEDS: FOLIC ACID 1 MG TABLET PO SCH (23:50)
[2022-01-07] MEDS: MIRTAZAPINE 15 MG TABLET PO SCH (23:50)
[2022-01-07] MEDS: PROMETHAZINE-DM 6.25 MG-15 MG/5 ML UDC PO PRN (23:51)
[2022-01-08] MEDS: IPRATROPIUM/ALBUTEROL SULFATE 3 ML AMPUL.NEB (DUONEB) INH SCH ×5 (01:15→20:09)
[2022-01-08] MEDS: metroNIDAZOLE 500 mg/NS 100 ML IV SCH ×3 (05:56→22:15)
[2022-01-08] MEDS: MEROPENEM 1 GM in NS 100 ML IV SCH ×3 (06:19→22:17)
[2022-01-08 07:51] LABS: BASOPHILS # (AUTO) 0.1 K/uL (0.0-0.2); BASOPHILS % (AUTO) 0.4 % (0.0-2.0); EOSINOPHILS # (AUTO) 0.1 K/uL (0.0-0.4); EOSINOPHILS % (AUTO) 0.5 % (0.0-4.0); LYMPHOCYTES # (AUTO) 0.8 K/uL (1.0-5.5); LYMPHOCYTES % (AUTO) 4.8 % (20.5-51.5); MEAN CORPUSCULAR VOLUME 88 fL (79.0-98.0); MONOCYTES # (AUTO) 1.7 K/uL (0.0-1.0); NEUTROPHILS # (AUTO) 14.1 K/uL (1.8-7.7); NEUTROPHILS % (AUTO) 84.3 % (40.0-70.0); PLATELET COUNT (AUTO) 302 K/uL (130-430); RED BLOOD CELL COUNT(AUTO) 3.65 MIL/uL (4.2-6.2); RED CELL DISTRIBUTION WIDTH 17.9 % (9.0-15.0)
[2022-01-08 08:01] LABS: INR 1.3 (0.80-1.20); PROTHROMBIN TIME 12.6 SECS (9.5-12.5)
[2022-01-08 08:09] LABS: CREATININE 1.18 mg/dL (0.55-1.30); POTASSIUM 4.3 mmol/L (3.5-5.1)
[2022-01-08] MEDS ORDERED: ONDANSETRON HCL 4 MG/2 ML VIAL IVP PRN (09:00)
[2022-01-08] MEDS ORDERED: LR 1,000 ML IV SCH (09:00)
[2022-01-08] MEDS: POLYETHYLENE GLYCOL 3350, 17 GM/ POWD.PACK PO SCH (09:00)
[2022-01-08] MEDS ORDERED: PROPOFOL 200MG/ 20ML VIAL (DIPRIVAN) IV ONE (09:00)
[2022-01-08] MEDS: MILK OF MAGNESIA 30 ML UDC PO SCH (09:00)
[2022-01-08] MEDS ORDERED: HYDROmorphone 1 MG/ML INJ. CARTRIDGE IVP PRN (09:00)
[2022-01-08 09:30] VITALS: BP_SYST 116
[2022-01-08] MEDS: DILTIAZEM HCL 240 MG CAP.SR.24H PO SCH (10:07)
[2022-01-08] MEDS: ASPIRIN 81 MG TAB.CHEW PO SCH (10:07)
[2022-01-08] MEDS: PARoxetine HCL 20 MG TABLET PO SCH (10:08)
[2022-01-08] MEDS: levETIRAcetam 500 MG TABLET PO SCH (10:08)
[2022-01-08] MEDS: clonazePAM 0.5 MG TABLET PO SCH ×2 (10:08→22:21)
[2022-01-08 10:18] LABS: WHITE BLOOD COUNT (AUTO) 16.7 K/uL (4.8-10.8)
[2022-01-08] MEDS: FUROSEMIDE 20 MG/2 ML VIAL IVP SCH (10:36)
[2022-01-08] MEDS: PROMETHAZINE-DM 6.25 MG-15 MG/5 ML UDC PO PRN ×2 (11:07→22:21)
[2022-01-08] MEDS: IPRATROPIUM/ALBUTEROL SULFATE 3 ML AMPUL.NEB (DUONEB) INH PRN (11:12)
[2022-01-08 12:08] VITALS: BP_SYST 113
[2022-01-08] MEDS: ACETAMINOPHEN 500 MG TABLET PO PRN (13:44)
[2022-01-08] MEDS ORDERED: NALOXONE HCL 0.4 MG/ML AMP (NARCAN) IVP PRN (15:45)
[2022-01-08] MEDS: MORPHINE 2 MG/ML INJ. SYRINGE IVP PRN ×2 (15:52→22:20)
[2022-01-08 18:15] VITALS: BP_SYST 118
[2022-01-08 20:00] VITALS: BP_SYST 112
[2022-01-08] MEDS: FOLIC ACID 1 MG TABLET PO SCH (22:20)
[2022-01-08] MEDS: MIRTAZAPINE 15 MG TABLET PO SCH (22:20)
[2022-01-08] MEDS: ATORVASTATIN 20 MG TABLET PO SCH (22:21)
[2022-01-08] MEDS: SENNA 8.8 MG/5 ML UDC GT SCH (22:36)
[2022-01-09] VITALS: BP_SYST 114
[2022-01-09] MEDS: IPRATROPIUM/ALBUTEROL SULFATE 3 ML AMPUL.NEB (DUONEB) INH PRN ×3 (01:44→11:22)
[2022-01-09] MEDS: IPRATROPIUM/ALBUTEROL SULFATE 3 ML AMPUL.NEB (DUONEB) INH SCH ×4 (04:00→19:20)
[2022-01-09] MEDS: MEROPENEM 1 GM in NS 100 ML IV SCH ×3 (05:21→23:25)
[2022-01-09] MEDS: metroNIDAZOLE 500 mg/NS 100 ML IV SCH ×3 (05:21→23:29)
[2022-01-09 08:00] VITALS: BP_SYST 111
[2022-01-09] MEDS: PARoxetine HCL 20 MG TABLET PO SCH (09:25)
[2022-01-09] MEDS: levETIRAcetam 500 MG TABLET PO SCH (09:25)
[2022-01-09] MEDS: ASPIRIN 81 MG TAB.CHEW PO SCH (09:25)
[2022-01-09] MEDS: clonazePAM 0.5 MG TABLET PO SCH ×2 (09:25→20:35)
[2022-01-09] MEDS: DILTIAZEM HCL 240 MG CAP.SR.24H PO SCH (09:27)
[2022-01-09] MEDS: POLYETHYLENE GLYCOL 3350, 17 GM/ POWD.PACK PO SCH (09:29)
[2022-01-09] MEDS: FUROSEMIDE 20 MG/2 ML VIAL IVP SCH (09:29)
[2022-01-09] MEDS: MILK OF MAGNESIA 30 ML UDC PO SCH (09:29)
[2022-01-09 11:37] LABS: BILIRUBIN,URINE NEGATIVE (NEGATIVE); BLOOD, URINE 3+ (NEGATIVE); COLOR,URINE YELLOW (YELLOW); GLUCOSE,URINE NEGATIVE (NEGATIVE); KETONES,URINE NEGATIVE (NEGATIVE); LEUKOCYTE ESTERASE ,URINE NEGATIVE (NEGATIVE); NITRITE, URINE NEGATIVE (NEGATIVE); PH,URINE 6.5 (5.0-8.0); PROTEIN URINE NEGATIVE (NEGATIVE); UROBILINOGEN,URINE 0.2 (0.2-1.0)
[2022-01-09 11:42] LABS: CLARITY/URINE CLOUDY (CLEAR)
[2022-01-09 13:17] VITALS: BP_SYST 110
[2022-01-09 13:51] LABS: BACTERIA,URINE FEW /HPF (None Seen); WBC,URINE NONE SEEN /HPF (0-3)
[2022-01-09 14:53] LABS: BASOPHILS # (AUTO) 0.1 K/uL (0.0-0.2); BASOPHILS % (AUTO) 0.6 % (0.0-2.0); EOSINOPHILS # (AUTO) 0.1 K/uL (0.0-0.4); EOSINOPHILS % (AUTO) 0.6 % (0.0-4.0); LYMPHOCYTES # (AUTO) 0.7 K/uL (1.0-5.5); LYMPHOCYTES % (AUTO) 4.6 % (20.5-51.5); MEAN CORPUSCULAR VOLUME 89 fL (79.0-98.0); NEUTROPHILS # (AUTO) 13.9 K/uL (1.8-7.7); NEUTROPHILS % (AUTO) 88.2 % (40.0-70.0); PLATELET COUNT (AUTO) 291 K/uL (130-430); RED BLOOD CELL COUNT(AUTO) 4.06 MIL/uL (4.2-6.2); RED CELL DISTRIBUTION WIDTH 18.1 % (9.0-15.0); WHITE BLOOD COUNT (AUTO) 15.8 K/uL (4.8-10.8)
[2022-01-09 15:06] LABS: ALBUMIN 2.8 g/dL (3.4-4.8); CALCIUM 8.4 mg/dL (8.4-11.0); CREATININE 1.35 mg/dL (0.55-1.30); POTASSIUM 3.5 mmol/L (3.5-5.1); TOTAL BILIRUBIN 1.1 mg/dL (0.0-1.0)
[2022-01-09] MEDS: MORPHINE 2 MG/ML INJ. SYRINGE IVP PRN ×2 (15:17→20:35)
[2022-01-09 16:40] VITALS: BP_SYST 115
[2022-01-09 20:00] VITALS: BP_SYST 98
[2022-01-09] MEDS: ATORVASTATIN 20 MG TABLET PO SCH (20:35)
[2022-01-09] MEDS: FOLIC ACID 1 MG TABLET PO SCH (20:35)
[2022-01-09] MEDS: SENNA 8.8 MG/5 ML UDC GT SCH (20:35)
[2022-01-09] MEDS: MIRTAZAPINE 15 MG TABLET PO SCH (20:54)
[2022-01-09] MEDS: PROMETHAZINE-DM 6.25 MG-15 MG/5 ML UDC PO PRN (20:55)
[2022-01-10] VITALS: BP_SYST 103
[2022-01-10] MEDS: MORPHINE 2 MG/ML INJ. SYRINGE IVP PRN ×3 (00:27→23:46)
[2022-01-10] MEDS: IPRATROPIUM/ALBUTEROL SULFATE 3 ML AMPUL.NEB (DUONEB) INH SCH ×4 (00:50→19:48)
[2022-01-10] MEDS: ONDANSETRON HCL 4 MG/2 ML VIAL IVP PRN ×2 (02:34→14:26)
[2022-01-10] MEDS: metroNIDAZOLE 500 mg/NS 100 ML IV SCH ×3 (05:55→22:55)
[2022-01-10] MEDS: MEROPENEM 1 GM in NS 100 ML IV SCH ×3 (05:56→22:55)
[2022-01-10] MEDS: NYSTATIN 500,000 UNITS/5 ML UDC PO SCH ×4 (06:47→23:02)
[2022-01-10 08:00] VITALS: BP_SYST 101
[2022-01-10 08:36] LABS: CALCIUM 8.1 mg/dL (8.4-11.0); CREATININE 1.21 mg/dL (0.55-1.30); POTASSIUM 3.8 mmol/L (3.5-5.1)
[2022-01-10] MEDS: MILK OF MAGNESIA 30 ML UDC PO SCH (09:32)
[2022-01-10] MEDS: clonazePAM 0.5 MG TABLET PO SCH ×2 (09:33→21:53)
[2022-01-10] MEDS: POLYETHYLENE GLYCOL 3350, 17 GM/ POWD.PACK PO SCH (09:33)
[2022-01-10] MEDS: DILTIAZEM HCL 240 MG CAP.SR.24H PO SCH (09:33)
[2022-01-10] MEDS: ASPIRIN 81 MG TAB.CHEW PO SCH (09:33)
[2022-01-10] MEDS: PARoxetine HCL 20 MG TABLET PO SCH (09:33)
[2022-01-10] MEDS: levETIRAcetam 500 MG TABLET PO SCH (09:33)
[2022-01-10] MEDS: FUROSEMIDE 20 MG/2 ML VIAL IVP SCH (09:35)
[2022-01-10 11:00] VITALS: BP_SYST 136
[2022-01-10 12:00] VITALS: BP_SYST 109
[2022-01-10 16:00] VITALS: BP_SYST 134
[2022-01-10] MEDS ORDERED: MERO1PIG IV ×2 (17:27→17:28)
[2022-01-10 20:00] VITALS: BP_SYST 95
[2022-01-10] MEDS: SENNA 8.8 MG/5 ML UDC GT SCH (21:53)
[2022-01-10] MEDS: APIXABAN 2.5 MG TABLET PO SCH (21:53)
[2022-01-10] MEDS: FOLIC ACID 1 MG TABLET PO SCH (21:54)
[2022-01-10] MEDS: MIRTAZAPINE 15 MG TABLET PO SCH (21:54)
[2022-01-10] MEDS: ATORVASTATIN 20 MG TABLET PO SCH (21:54)
[2022-01-11] VITALS: BP_SYST 95
[2022-01-11] MEDS: IPRATROPIUM/ALBUTEROL SULFATE 3 ML AMPUL.NEB (DUONEB) INH SCH ×4 (01:44→19:31)
[2022-01-11] MEDS: MORPHINE 2 MG/ML INJ. SYRINGE IVP PRN ×3 (04:32→23:22)
[2022-01-11] MEDS: MEROPENEM 1 GM in NS 100 ML IV SCH ×3 (05:59→21:57)
[2022-01-11] MEDS: metroNIDAZOLE 500 mg/NS 100 ML IV SCH ×3 (05:59→22:31)
[2022-01-11] MEDS: NYSTATIN 500,000 UNITS/5 ML UDC PO SCH ×4 (06:06→23:20)
[2022-01-11] MEDS: MILK OF MAGNESIA 30 ML UDC PO SCH (09:39)
[2022-01-11] MEDS: levETIRAcetam 500 MG TABLET PO SCH (09:39)
[2022-01-11] MEDS: clonazePAM 0.5 MG TABLET PO SCH ×2 (09:39→21:23)
[2022-01-11] MEDS: APIXABAN 2.5 MG TABLET PO SCH ×2 (09:43→21:30)
[2022-01-11] MEDS: FUROSEMIDE 20 MG/2 ML VIAL IVP SCH (09:44)
[2022-01-11] MEDS: PARoxetine HCL 20 MG TABLET PO SCH (09:45)
[2022-01-11] MEDS: ONDANSETRON HCL 4 MG/2 ML VIAL IVP PRN (09:45)
[2022-01-11] MEDS: POLYETHYLENE GLYCOL 3350, 17 GM/ POWD.PACK PO SCH (09:45)
[2022-01-11] MEDS: DILTIAZEM HCL 240 MG CAP.SR.24H PO SCH (09:45)
[2022-01-11] MEDS: ASPIRIN 81 MG TAB.CHEW PO SCH (09:45)
[2022-01-11 11:14] LABS: ALBUMIN 2.4 g/dL (3.4-4.8); CALCIUM 8.3 mg/dL (8.4-11.0); CREATININE 1.27 mg/dL (0.55-1.30); POTASSIUM 3.8 mmol/L (3.5-5.1)
[2022-01-11 14:09] LABS: BASOPHILS # (AUTO) 0.2 K/uL (0.0-0.2); BASOPHILS % (AUTO) 1.5 % (0.0-2.0); EOSINOPHILS # (AUTO) 0.2 K/uL (0.0-0.4); EOSINOPHILS % (AUTO) 1.3 % (0.0-4.0); HEMATOCRIT 31.2 % (36-54); LYMPHOCYTES # (AUTO) 0.9 K/uL (1.0-5.5); LYMPHOCYTES % (AUTO) 7.3 % (20.5-51.5); MEAN CORPUSCULAR VOLUME 89 fL (79.0-98.0); MONOCYTES % (AUTO) 8.3 % (1.7-9.3); NEUTROPHILS # (AUTO) 10.1 K/uL (1.8-7.7); NEUTROPHILS % (AUTO) 81.6 % (40.0-70.0); PLATELET COUNT (AUTO) 240 K/uL (130-430); RED BLOOD CELL COUNT(AUTO) 3.49 MIL/uL (4.2-6.2); WHITE BLOOD COUNT (AUTO) 12.4 K/uL (4.8-10.8)
[2022-01-11 16:40] VITALS: BP_SYST 97
[2022-01-11 20:00] VITALS: BP_SYST 106
[2022-01-11] MEDS: SENNA 8.8 MG/5 ML UDC GT SCH (21:00)
[2022-01-11] MEDS: ATORVASTATIN 20 MG TABLET PO SCH (21:23)
[2022-01-11] MEDS: MIRTAZAPINE 15 MG TABLET PO SCH (21:23)
[2022-01-11] MEDS: FOLIC ACID 1 MG TABLET PO SCH (21:23)
[2022-01-11] MEDS: IPRATROPIUM/ALBUTEROL SULFATE 3 ML AMPUL.NEB (DUONEB) INH PRN (23:27)
[2022-01-12] VITALS: BP_SYST 110
[2022-01-12] MEDS: MORPHINE 2 MG/ML INJ. SYRINGE IVP PRN ×3 (04:02→22:08)
[2022-01-12] MEDS: MEROPENEM 1 GM in NS 100 ML IV SCH ×3 (05:04→22:00)
[2022-01-12] MEDS: IPRATROPIUM/ALBUTEROL SULFATE 3 ML AMPUL.NEB (DUONEB) INH SCH ×4 (05:27→20:13)
[2022-01-12] MEDS: metroNIDAZOLE 500 mg/NS 100 ML IV SCH ×3 (06:05→21:58)
[2022-01-12] MEDS: NYSTATIN 500,000 UNITS/5 ML UDC PO SCH ×5 (06:28→21:36)
[2022-01-12 07:31] VITALS: BP_SYST 106
[2022-01-12] MEDS: ASPIRIN 81 MG TAB.CHEW PO SCH (09:50)
[2022-01-12] MEDS: FUROSEMIDE 20 MG/2 ML VIAL IVP SCH (09:50)
[2022-01-12] MEDS: DILTIAZEM HCL 240 MG CAP.SR.24H PO SCH (09:51)
[2022-01-12] MEDS: clonazePAM 0.5 MG TABLET PO SCH ×2 (09:51→21:35)
[2022-01-12] MEDS: APIXABAN 2.5 MG TABLET PO SCH ×2 (09:53→21:41)
[2022-01-12] MEDS: MILK OF MAGNESIA 30 ML UDC PO SCH (09:55)
[2022-01-12] MEDS: POLYETHYLENE GLYCOL 3350, 17 GM/ POWD.PACK PO SCH (09:55)
[2022-01-12] MEDS: PARoxetine HCL 20 MG TABLET PO SCH (09:56)
[2022-01-12] MEDS: levETIRAcetam 500 MG TABLET PO SCH (10:02)
[2022-01-12 12:00] VITALS: BP_SYST 120
[2022-01-12 16:00] VITALS: BP_SYST 124
[2022-01-12] MEDS: LORazepam 2 MG/ML VIAL IVP PRN (19:35)
[2022-01-12 20:00] VITALS: BP_SYST 99
[2022-01-12] MEDS: SENNA 8.8 MG/5 ML UDC GT SCH (21:00)
[2022-01-12] MEDS: MIRTAZAPINE 15 MG TABLET PO SCH (21:35)
[2022-01-12] MEDS: DOXYCYCLINE HYCLATE 100 MG CAPSULE PO SCH (21:35)
[2022-01-12] MEDS: ATORVASTATIN 20 MG TABLET PO SCH (21:36)
[2022-01-12] MEDS: FOLIC ACID 1 MG TABLET PO SCH (21:36)
[2022-01-13 00:27] VITALS: BP_SYST 112
[2022-01-13] MEDS: IPRATROPIUM/ALBUTEROL SULFATE 3 ML AMPUL.NEB (DUONEB) INH SCH ×5 (02:54→23:50)
[2022-01-13] MEDS: MEROPENEM 1 GM in NS 100 ML IV SCH (05:05)
[2022-01-13] MEDS: NYSTATIN 500,000 UNITS/5 ML UDC PO SCH ×3 (07:10→18:44)
[2022-01-13 08:01] VITALS: BP_SYST 113
[2022-01-13] MEDS ORDERED: metOLazone 5 MG TABLET PO ONE (09:00)
[2022-01-13] MEDS: POLYETHYLENE GLYCOL 3350, 17 GM/ POWD.PACK PO SCH (09:00)
[2022-01-13] MEDS: MILK OF MAGNESIA 30 ML UDC PO SCH (09:00)
[2022-01-13] MEDS: CLOTRIMAZOLE 1% TOPICAL CREAM 15 GM TP SCH ×3 (09:55→21:30)
[2022-01-13] MEDS: clonazePAM 0.5 MG TABLET PO SCH (09:55)
[2022-01-13] MEDS: PARoxetine HCL 20 MG TABLET PO SCH (09:56)
[2022-01-13] MEDS: levETIRAcetam 500 MG TABLET PO SCH (09:56)
[2022-01-13] MEDS: DOXYCYCLINE HYCLATE 100 MG CAPSULE PO SCH ×2 (09:56→21:27)
[2022-01-13] MEDS: ASPIRIN 81 MG TAB.CHEW PO SCH (09:56)
[2022-01-13] MEDS: DILTIAZEM HCL 240 MG CAP.SR.24H PO SCH (09:56)
[2022-01-13] MEDS: FUROSEMIDE 20 MG/2 ML VIAL IVP SCH (09:59)
[2022-01-13] MEDS: APIXABAN 2.5 MG TABLET PO SCH ×2 (10:01→22:17)
[2022-01-13] MEDS: LORazepam 2 MG/ML VIAL IVP PRN ×3 (10:35→22:51)
[2022-01-13 10:57] LABS: ALBUMIN 2.5 g/dL (3.4-4.8); CALCIUM 8.6 mg/dL (8.4-11.0); CREATININE 1.64 mg/dL (0.55-1.30); TOTAL BILIRUBIN 0.8 mg/dL (0.0-1.0)
[2022-01-13 11:35] VITALS: BP_SYST 131
[2022-01-13] MEDS: metroNIDAZOLE 500 mg/NS 100 ML IV SCH ×2 (14:38→21:27)
[2022-01-13 15:44] VITALS: BP_SYST 105
[2022-01-13 20:00] VITALS: BP_SYST 107
[2022-01-13] MEDS: MORPHINE 2 MG/ML INJ. SYRINGE IVP PRN (20:21)
[2022-01-13] MEDS: SENNA 8.8 MG/5 ML UDC GT SCH (21:00)
[2022-01-13] MEDS: MIRTAZAPINE 15 MG TABLET PO SCH (21:27)
[2022-01-13] MEDS: FOLIC ACID 1 MG TABLET PO SCH (21:27)
[2022-01-13] MEDS: ATORVASTATIN 20 MG TABLET PO SCH (21:27)
[2022-01-14] MEDS: NYSTATIN 500,000 UNITS/5 ML UDC PO SCH ×5 (00:35→23:56)
[2022-01-14] MEDS: MORPHINE 2 MG/ML INJ. SYRINGE IVP PRN ×4 (00:36→22:54)
[2022-01-14 02:25] VITALS: BP_SYST 99
[2022-01-14] MEDS: LORazepam 2 MG/ML VIAL IVP PRN ×2 (03:15→09:20)
[2022-01-14] MEDS: metroNIDAZOLE 500 mg/NS 100 ML IV SCH ×3 (07:06→22:53)
[2022-01-14] MEDS: IPRATROPIUM/ALBUTEROL SULFATE 3 ML AMPUL.NEB (DUONEB) INH SCH ×3 (08:02→20:09)
[2022-01-14] MEDS: POLYETHYLENE GLYCOL 3350, 17 GM/ POWD.PACK PO SCH (09:00)
[2022-01-14] MEDS: DILTIAZEM HCL 240 MG CAP.SR.24H PO SCH (09:35)
[2022-01-14] MEDS: ASPIRIN 81 MG TAB.CHEW PO SCH (09:36)
[2022-01-14] MEDS: PARoxetine HCL 20 MG TABLET PO SCH (09:36)
[2022-01-14] MEDS: DOXYCYCLINE HYCLATE 100 MG CAPSULE PO SCH ×2 (09:36→21:19)
[2022-01-14] MEDS: APIXABAN 2.5 MG TABLET PO SCH ×2 (09:37→21:20)
[2022-01-14] MEDS: FUROSEMIDE 20 MG/2 ML VIAL IVP SCH (09:39)
[2022-01-14] MEDS: levETIRAcetam 500 MG TABLET PO SCH (09:39)
[2022-01-14] MEDS: MILK OF MAGNESIA 30 ML UDC PO SCH (09:39)
[2022-01-14] MEDS: CLOTRIMAZOLE 1% TOPICAL CREAM 15 GM TP SCH ×2 (09:40→21:22)
[2022-01-14 11:42] VITALS: BP_SYST 110
[2022-01-14 12:13] LABS: BASOPHILS # (AUTO) 0.1 K/uL (0.0-0.2); EOSINOPHILS # (AUTO) 0.2 K/uL (0.0-0.4); EOSINOPHILS % (AUTO) 1.2 % (0.0-4.0); HEMATOCRIT 33.2 % (36-54); LYMPHOCYTES # (AUTO) 0.6 K/uL (1.0-5.5); LYMPHOCYTES % (AUTO) 4.2 % (20.5-51.5); MEAN CORPUSCULAR VOLUME 90 fL (79.0-98.0); MONOCYTES # (AUTO) 1.1 K/uL (0.0-1.0); MONOCYTES % (AUTO) 8.4 % (1.7-9.3); NEUTROPHILS # (AUTO) 11.3 K/uL (1.8-7.7); NEUTROPHILS % (AUTO) 85.2 % (40.0-70.0); PLATELET COUNT (AUTO) 232 K/uL (130-430); RED BLOOD CELL COUNT(AUTO) 3.68 MIL/uL (4.2-6.2); RED CELL DISTRIBUTION WIDTH 20.5 % (9.0-15.0); WHITE BLOOD COUNT (AUTO) 13.3 K/uL (4.8-10.8)
[2022-01-14 12:35] LABS: CALCIUM 8.3 mg/dL (8.4-11.0); CREATININE 1.46 mg/dL (0.55-1.30); PHOSPHORUS 3.7 mg/dL (2.7-4.5); POTASSIUM 3.9 mmol/L (3.5-5.1)
[2022-01-14 13:05] VITALS: BP_SYST 107
[2022-01-14 15:26] VITALS: BP_SYST 104
[2022-01-14] MEDS ORDERED: NEOMY SULF/BACITRAC ZN/POLY 28 GM OINT..GM. TP PRN (16:30)
[2022-01-14 21:16] VITALS: BP_SYST 106
[2022-01-14] MEDS: ATORVASTATIN 20 MG TABLET PO SCH (21:19)
[2022-01-14] MEDS: MIRTAZAPINE 15 MG TABLET PO SCH (21:21)
[2022-01-14] MEDS: FOLIC ACID 1 MG TABLET PO SCH (21:21)
[2022-01-14] MEDS: SENNA 8.8 MG/5 ML UDC GT SCH (22:51)
[2022-01-14 22:54] VITALS: BP_SYST 106
[2022-01-15 00:38] VITALS: BP_SYST 106
[2022-01-15] MEDS: IPRATROPIUM/ALBUTEROL SULFATE 3 ML AMPUL.NEB (DUONEB) INH SCH ×3 (01:00→11:28)
[2022-01-15] MEDS: LORazepam 2 MG/ML VIAL IVP PRN ×2 (01:06→14:10)
[2022-01-15 03:36] VITALS: BP_SYST 110
[2022-01-15] MEDS: MORPHINE 2 MG/ML INJ. SYRINGE IVP PRN ×2 (03:36→08:45)
[2022-01-15] MEDS: metroNIDAZOLE 500 mg/NS 100 ML IV SCH ×2 (05:55→14:07)
[2022-01-15] MEDS: NYSTATIN 500,000 UNITS/5 ML UDC PO SCH ×2 (05:55→13:56)
[2022-01-15 07:59] VITALS: BP_SYST 122
[2022-01-15] MEDS: levETIRAcetam 500 MG TABLET PO SCH (08:53)
[2022-01-15] MEDS: MILK OF MAGNESIA 30 ML UDC PO SCH (08:53)
[2022-01-15] MEDS: PARoxetine HCL 20 MG TABLET PO SCH (08:53)
[2022-01-15] MEDS: DOXYCYCLINE HYCLATE 100 MG CAPSULE PO SCH (08:53)
[2022-01-15] MEDS: ASPIRIN 81 MG TAB.CHEW PO SCH (08:53)
[2022-01-15] MEDS: FUROSEMIDE 20 MG/2 ML VIAL IVP SCH (08:54)
[2022-01-15] MEDS: APIXABAN 2.5 MG TABLET PO SCH (08:56)
[2022-01-15] MEDS: POLYETHYLENE GLYCOL 3350, 17 GM/ POWD.PACK PO SCH (09:00)
[2022-01-15] MEDS ORDERED: DOXY100C PO (09:12)
[2022-01-15] MEDS: DILTIAZEM HCL 240 MG CAP.SR.24H PO SCH (09:18)
[2022-01-15] MEDS: CLOTRIMAZOLE 1% TOPICAL CREAM 15 GM TP SCH (09:19)
[2022-01-15] MEDS ORDERED: METHYLPREDNISOLONE SOD SUCC 40 MG/ML VIAL IVP ONE (09:45)
[2022-01-15 12:00] VITALS: BP_SYST 137
[2022-01-15 15:00] VITALS: BP_SYST 136
== END 2022-01-15 15:35 | disposition hospice, home (50) | DRG 871 ==
LOC: SED 13:54 → STU 18:51 → SIC 12-26 02:03 → STU 01-02 22:32 → SMU 01-13 13:02
PROVIDERS: ADMIT Family Medicine; ATTEND Family Medicine
PROC: 5A09357 Assistance with Respiratory Ventilation, Less than 24 Consecutive Hours, Continuous Positive Airway Pressure (ICD-10-PCS; 2021-12-26)
PROC: 5A09357 Assistance with Respiratory Ventilation, Less than 24 Consecutive Hours, Continuous Positive Airway Pressure (ICD-10-PCS; 2021-12-27)
PROC: 5A09457 Assistance with Respiratory Ventilation, 24-96 Consecutive Hours, Continuous Positive Airway Pressure (ICD-10-PCS; 2021-12-28)
PROC: 5A09357 Assistance with Respiratory Ventilation, Less than 24 Consecutive Hours, Continuous Positive Airway Pressure (ICD-10-PCS; 2022-01-01)
PROC: 5A09357 Assistance with Respiratory Ventilation, Less than 24 Consecutive Hours, Continuous Positive Airway Pressure (ICD-10-PCS; 2022-01-03)
PROC: 5A09357 Assistance with Respiratory Ventilation, Less than 24 Consecutive Hours, Continuous Positive Airway Pressure (ICD-10-PCS; 2022-01-04)
PROC: 0DBN8ZX Excision of Sigmoid Colon, Via Natural or Artificial Opening Endoscopic, Diagnostic (ICD-10-PCS; principal; 2022-01-08 07:30)
PROC: 0DBN8ZZ Excision of Sigmoid Colon, Via Natural or Artificial Opening Endoscopic (ICD-10-PCS; 2022-01-08 07:30)
DX: A40.8 Other streptococcal sepsis (principal); I21.9 Acute myocardial infarction, unspecified; I33.0 Acute and subacute infective endocarditis; J18.9 Pneumonia, unspecified organism; J96.21 Acute and chronic respiratory failure with hypoxia; R65.21 Severe sepsis with septic shock; N39.0 Urinary tract infection, site not specified; K55.9 Vascular disorder of intestine, unspecified; J44.1 Chronic obstructive pulmonary disease with (acute) exacerbation; J44.0 Chronic obstructive pulmonary disease with (acute) lower respiratory infection; I48.21 Permanent atrial fibrillation; I42.9 Cardiomyopathy, unspecified; N17.9 Acute kidney failure, unspecified; I13.0 Hypertensive heart and chronic kidney disease with heart failure and stage 1 through stage 4 chronic kidney disease, or unspecified chronic kidney disease; N18.4 Chronic kidney disease, stage 4 (severe); B37.0 Candidal stomatitis; K63.3 Ulcer of intestine; K56.600 Partial intestinal obstruction, unspecified as to cause; N49.2 Inflammatory disorders of scrotum; G40.909 Epilepsy, unspecified, not intractable, without status epilepticus; F41.9 Anxiety disorder, unspecified; J20.9 Acute bronchitis, unspecified; D64.9 Anemia, unspecified; I50.9 Heart failure, unspecified; F32.A Depression, unspecified; G89.4 Chronic pain syndrome; K64.8 Other hemorrhoids; K63.5 Polyp of colon; Z20.822 Contact with and (suspected) exposure to COVID-19; I27.29 Other secondary pulmonary hypertension; I27.81 Cor pulmonale (chronic); K57.30 Diverticulosis of large intestine without perforation or abscess without bleeding; Z88.0 Allergy status to penicillin; Z79.899 Other long term (current) drug therapy; Z99.81 Dependence on supplemental oxygen; Z95.0 Presence of cardiac pacemaker; Z87.891 Personal history of nicotine dependence; Z87.19 Personal history of other diseases of the digestive system; Z86.711 Personal history of pulmonary embolism; Z85.038 Personal history of other malignant neoplasm of large intestine; Z80.0 Family history of malignant neoplasm of digestive organs; Z79.01 Long term (current) use of anticoagulants
CPT/HCPCS: 36415; 36600; 45380; 45384; 70450-TC; 71045; 71250-TC; 72191; 74018; 74175; 76376; 76770; 76870-TC; 80048; 80053; 80061; 80202; 81000; 82785; 82803-TC; 82962; 83605; 83735; 83880; 84100; 84443; 84484; 85007; 85025; 85027; 85610-TC; 85651-TC; 85730-TC; 86635; 86738; 87040; 87081; 87086; 87186-TC; 87230-TC; 87449; 88305; 92610-GN; 93005; 93306; 94640; 94660; 94760; 96374; 96375; 97116-GP; 97163-GP; 97530-GP; 99291; G0378; J0456; J0692; J0696; J1030; J1885; J1940; J2060; J2185; J2270; J2405; J2543; J2704; J2930; J3370; J3490; J7050; J7060; J7613; Q9963; Q9967